=== PATIENT | female | born 1995 | race Caucasian/White ===

== ENCOUNTER 2022-07-23 13:43 | Inpatient (IN) | payer SELFPAY, OTHER ==
[2022-07-23] VITALS (35 sets, daily range): BP systolic 112–150; BP diastolic 63–97; PULSE 67–104; TEMP 36.6–37.4; O2SAT 96–99; BMI 30.1
[2022-07-23] MEDS: Lactated Ringers 1,000 ML 50 ML IV (14:30)
[2022-07-23] MEDS: LACTATED RINGERS 500 ML 999 ML IV (14:33)
--- NOTE | 2022-07-23 14:39 | PCM.HP.OB ---
HPI - General General Date of Admission: 07/23/22 Date of Service: 07/23/22 Chief Complaint: labor HPI Narrative CHRISTIANO PATEL, is a 26 1 para 0 female who presents 07/11/2022 based on the roller coaster designer's clinical judgment. According to her last menstrual period her MARVA would be 07/06/2022 which is consistent with a 25-week ultrasound that gave an estimated MARVA of 07/12/2022. Patient denied any vaginal bleeding. She was having irregular contractions off and on. She arrived to the birthing center last night approximately 7 PM. She had some cervical change. The roller coaster designer with the patient reports that the patient was complete approximately 5 hours ago, she allowed her to labor down for 2 hours then had her push for 2 hours. At that point membranes were intact. After 2 hours without progress patient the roller coaster designer called me and asked to transport the patient here for possible Pitocin augmentation, alternative pain control measures and possible need for operative delivery. I excepted the transport because she reported that the heart tones were stable in the the patient was stable. They arrived to labor and delivery and the patient was very uncomfortable. She had spontaneous rupture membranes right before they left the birthing center. She is had regular care starting at approximately 17-week. Maternal Data Information Final MARVA: 07/06/22 Gestational age: 42 3/7 PFSH PFSH Medical History no medical history Home Medications diphenhydramine HCl 25 mg capsule (Benadryl) 25 mg PO PRN PRN poision anel 07/23/22 [History Last Taken 07/22/22 21:00] [id number] 1 mg tablet 1 tab PO DAILY 07/23/22 [History Last Taken Unknown] Allergy/AdvReac Type Severity Reaction Status Date / Time acetaminophen [From Tylenol] Allergy Hives Verified 07/23/22 14:10 ceftriaxone [From Rocephin] Allergy Hives Verified 07/23/22 14:14 Surgical History no surgical history Social History Smoking Status: Never smoker History Elective abortions Hx Para 0 Spontaneous abortions Hx # Term Pregnancies Ectopic pregnancies Hx # Pregnancies Multiple births # of living children NST FHR Rate Baby A Baseline: normal Variability:: Minimal Accelerations:: None Decelerations:: None NST Reactive:: Non-Reactive Uterine Activity:: regular ctxs ROS Constitutional Constitutional: Denies fatigue, fever(s) or malaise Eyes Eyes: Denies change in vision ENT HEENT: Denies dizziness or headache(s) Cardiovascular Cardiovascular: Denies chest pain, dyspnea or lightheadedness Respiratory/Chest Respiratory/Chest: Denies cough or dyspnea Gastrointestinal Gastrointestinal: Denies change in bowel habits Genitourinary Genitourinary: Denies burning urination or genital lesions Integumentary Integumentary: Denies rash Neurologic Neurologic: Denies confusion, dizziness, headache(s), numbness or weakness Vital Signs Vital Signs Vital Signs: 07/23/22 13:54 07/23/22 13:54 07/23/22 13:54 Temperature 97.9 F Temperature Source Temporal Pulse Ox 98 Weight Weight: 98 kg Body Mass Index (BMI) 30.1 Physical Exam Const alert and no apparent distress General Appearance: cooperative HEENT normocephalic Resp normal respiratory effort Cardio regular rate GI soft to palpation GI Narrative: gravid, nontender, appropriate for gestational age Extremity no calf tenderness General Extremity: edema Skin no wounds Rashes: No rashes noted Psych activity/motor behavior normal Labs Labs Labs: No Data to Display Assessment & Plan (1) 42 weeks gestation of : PLAN: 42+ week gestational age by last menstrual period which was consistent by her 25-week ultrasound. Admit noted with prolonged second stage. I discussed with the patient and her the options of proceeding with a section. I discussed with them that being anterior lip for 5+ hours without an epidural was diagnostic for arrest of descent and CPD. However there is very little caput on the skull and the heart tones are category 1 at this point. Patient is afebrile. I discussed with her that being anterior lip to complete for this long increase the risk of pelvic floor nerve damage. Discussed with him that would be the clinical recommendation. However, she could elect for an epidural and Pitocin augmentation I would be willing to let her push for another hour to see if she made significant progress. Patient would like to proceed with this. Group B strep was not collected because patient had multiple cervical exams. She does not have a fever so and has not had prolonged rupture membranes so does not meet criteria for group B strep prophylaxis based on clinical criteria. panel was drawn. Continuous monitoring and reevaluate after patient is comfortable we will start Pitocin augmentation and resume pushing. (2) Dysfunctional labor: (3) Prolonged second stage:
[2022-07-23 14:51] LABS: Absolute Lymphocyte Count 0.79 X10^3/uL (0.83-4.51); Absolute Neutrophil Count 10.9 X10^3/uL (2.0-7.7); Basophil# 0.02 X10^3/uL; Basophil% 0.2 % (0-1); Eosinophil# 0.01 X10^3/uL; Eosinophils% 0.1 % (0-5); Hematocrit 37.7 % (37-47); Hemoglobin 12.9 g/dL (12.0-15.0); Lymphocyte # 0.79 X10^3/ul (0.83-4.51); Lymphocyte % 6.5 % (19-41); Mean Corp Hgb Conc 34.2 g/dL (32-36); Mean Corpuscular Hgb 31.8 pg (27.0-32.0); Mean Corpuscular Volume 92.9 fL (81-99); Mean Platelet Vol. 11.5 fl (6.2-12.0); Monocyte# 0.54 X10^3/uL; Monocyte% 4.4 % (0-10); NRBC Flagged by Analyzer 0 % (0-5); Neutrophil # 10.85 X10^3/uL (2.7-7.7); Neutrophil % 88.6 % (47-70); Platelet Count 192 K/mm3 (150-450); RBC Distribution Width CV 12.4 % (11.6-14.6); RBC Distribution Width SD 42.7 fl (35.1-43.9); Red Blood Count 4.06 M/mm3 (4.2-5.4); White Blood Count 12.2 K/mm3 (4.4-11.0)
[2022-07-23] MEDS: fentaNYL-bupivacaine (epidural) 100 ML BAG EPIDURAL (15:33)
[2022-07-23] MEDS: Oxytocin 30 units/NS 500 ml 30 UNITS/500 ML IV.SOLN IV (16:20)
[2022-07-23 16:22] LABS: HIV - WCH Non-Reactive (Nonreactive); Hepatitis B Surface Antigen Non-Reactive (Nonreactive); Hepatitis C Antibody Non-Reactive (Nonreactive)
[2022-07-23 16:32] LABS: Mucous, Urine 0 SEEN /hpf (<or=2+); Red Blood Cells-Urine 0 SEEN /hpf (0-5); White Blood Cells 0 SEEN /hpf (0-5)
[2022-07-23 16:36] LABS: Color, Urine Yellow (Yellow); Glucose, Dipstick Normal (Normal); Ketone-Dipstick 50 mg/dl (Negative); Leukocyte Esterase-Dipstick Negative /ul (Negative); Nitrite-Dipstick Negative (Negative); Occult Blood-Urine Negative /ul (Negative); Protein-Dipstick Negative (Negative); Specific Gravity, Urine 1.015 (1.002-1.030); Urine Bilirubin Dipstick Negative (Negative); Urine Clarity Clear (Clear); Urine Urobilinogen Normal (Normal)
[2022-07-23 16:47] LABS: Bacteria 1+ /hpf (None Seen); Squamous Epithelial Cells - UA 0-5 SEEN /hpf (5-10)
[2022-07-23 17:22] LABS: Amphetamine Urine VISTA NEGATIVE (<1000 ng/mL); Barbiturate Urine VISTA NEGATIVE (< 200 ng/mL); Benzodiazepine Urine VISTA NEGATIVE (< 200 ng/mL); Cocaine Urine VISTA NEGATIVE (< 300 ng/mL); Ecstacy Urine VISTA NEGATIVE (< 500 ng/mL); Methadone Urine VISTA NEGATIVE (< 300 ng/mL); PCP Urine VISTA NEGATIVE (< 25 ng/mL); THC Urine VISTA NEGATIVE (< 50 ng/mL); Vista UDS pH Range 6
[2022-07-23] MEDS: Lactated Ringers 1,000 ML 200 ML IV (18:26)
[2022-07-23] MEDS: Oxytocin 30 units/NS 500 ml 30 UNITS/500 ML IV.SOLN 334 UNITS IV (19:35)
--- NOTE | 2022-07-23 20:05 | OP.PCM_ITS ---
Assessment & Plan (1) 42 weeks gestation of : (2) (spontaneous vaginal delivery): (3) Second degree laceration of perineum, delivered, current hospitalization: Maternal Data Information Final MARVA: 07/06/22 Gestational age: 42 3/7 Vaginal Delivery Maternal Presentation Maternal Presentation: Active Labor Operative Information Date of Procedure: 07/23/22 Pre-Operative Diagnosis: labor Post-Operative Diagnosis: same Surgery / Procedure Performed: Spontaneous Vaginal Delivery Type of Anesthesia: Epidural Special Medications: none Drain: Chong to straight drain Estimated Blood Loss: 500 Time of Delivery: 19:31 Findings Description of Procedure: A vigorous male infant was delivered MIRI over a second-degree perineal laceration. The remainder the infant was delivered with maternal pushing and gentle traction only in less than 15 seconds. The Pitocin infusion was initiated for active management of the third stage. The cord was clamped and cut after it stopped pulsing. The was attended to by the waiting nursing staff. The placenta was delivered spontaneously and intact. The cervix and vagina were intact. The second-degree perineal laceration was repaired with 3-0 Vicryl suture in a running standard fashion. The uterus was explored once and cleared of all clot and debris. The Pitocin was increased. Her fundus then firmed up and the bleeding was average. Sponge and needle counts were correct. A vaginal sweep was completed by me. Presentation: MIRI Amniotic Membrane Rupture Type: Spontaneous Amniotic Fluid Description: Clear Placental Delivery Description: Spontaneous Placenta Disposition: [facility] Cord Vessel Description: 3 Vessels Cord Entanglement: None A Gender: Male (Mendel) (1 minute): 8 (5 minute): 9 Delayed Cord Clamping: Yes Post Vaginal Delivery Medications Given After Delivery: IV Pitocin Episiotomy Description: None Laceration: 2nd degree Complication Complications: None Admit VTE Documentation VTE Present on Admission: No VTE Mechan Device Prophylaxis: [facility] [place] VTE Pharm Prophylaxis Ordered: No
[2022-07-23] MEDS: Ibuprofen 600 MG Tablet PO (21:15)
[2022-07-23] MEDS: 0.9% Saline Lock 10 ML Syringe IV (21:57)
[2022-07-24 01:10] VITALS: BP 100/60; PULSE 74; RESP 16; TEMP 36.7; O2SAT 97
[2022-07-24 01:10] LABS: Chlamydia Trachomatis by PCR Negative (Negative); Neisserai gonorrhoeae by PCR Negative (Negative); Probe Check PASS; Sample Adequacy Control PASS; Specimen Processing Control PASS
[2022-07-24] MEDS: Ibuprofen 600 MG Tablet PO ×3 (03:20→21:19)
[2022-07-24] MEDS: Benzocaine/Lanolin/Aloe Vera 1 SPRAY EACH TOPICAL (03:34)
[2022-07-24 03:45] VITALS: BP 106/64; PULSE 80; RESP 18; TEMP 36.6; O2SAT 97
[2022-07-24 07:30] VITALS: BP 107/70; PULSE 81; RESP 16; TEMP 36.8; O2SAT 100
--- NOTE | 2022-07-24 07:40 | NURSING ---
bedside report given to Charlie Mar RN who is assuming care of pt at this time
--- NOTE | 2022-07-24 09:39 | PN.OBGYN_ITS ---
Subjective Subjective Pain well controlled. Average lochia. Objective Data Objective Data Vital Signs: Vital Signs Temp Pulse Resp BP Pulse Ox O2 Del Method 98.2 F 81 16 107/70 100 Room Air 07/24/22 07:30 07/24/22 07:30 07/24/22 07:30 07/24/22 07:30 07/24/22 07:30 07/24/22 07:30 Oxygen Delivery Method Room Air Weight: 98 kg Body Mass Index (BMI) 30.1 Intake & Output: Intake and Output for Last 24 Hours 07/22/22 07/23/22 07/24/22 23:59 23:59 23:59 Intake Total 1860.43 / 1860.43 Output Total 1680 / 1680 Balance 1860.43 / 1860.43 -1680 / -1680 Lab / Micro Data Result Diagrams: 07/23/22 14:40 Labs: Laboratory Results - last 24 hr 07/23/22 14:40: WBC 12.2 H, RBC 4.06 L, Hgb 12.9, Hct 37.7, MCV 92.9, MCH 31.8, MCHC 34.2, RDW Std Deviation 42.7, RDW Coeff of [place] 12.4, Plt Count 192, MPV 11.5, Immature Gran % (Auto) 0.200, Neut % (Auto) 88.6 H, Lymph % (Auto) 6.5 L, [place] % (Auto) 4.4, Eos % (Auto) 0.1, Baso % (Auto) 0.2, Absolute Neuts (auto) 10.9 H, Absolute Lymphs (auto) 0.79 L, Nucleated RBC % 0 07/23/22 14:40: Blood Type A POSITIVE, Antibody Screen NEGATIVE 07/23/22 14:40: Hep Bs Antigen Non-Reactive, Hepatitis C Antibody Non-Reactive, HIV 1&2 Antibody Non-Reactive 07/23/22 16:15: Urine Color Yellow, Urine Clarity Clear, Urine pH 6.0, Ur Specific [place] 1.015, Urine Protein Negative, Urine Glucose (UA) Normal, Urine Ketones 50 H, Urine Occult Blood Negative, Urine Nitrite Negative, Urine Bilirubin Negative, Urine Urobilinogen Normal, Ur Leukocyte Esterase Negative, Urine RBC 0 SEEN, Urine WBC 0 SEEN, Ur Squamous Epith Cells 0-5 SEEN, Urine Bacteria 1+, Urine Mucus 0 SEEN 08/27/22 16:15: Urine Opiates Screen NEGATIVE, Urine Methadone Screen NEGATIVE, Ur Barbiturates Screen NEGATIVE, Ur Phencyclidine Scrn NEGATIVE, Ur Amphetamines Screen NEGATIVE, MDMA (Ecstasy) Screen NEGATIVE, U Benzodiazepines Scrn NEGATIVE, Urine Cocaine Screen NEGATIVE, U Cannabinoids Screen NEGATIVE, Ur Drug Screen Comment 07/23/22 21:20: Chlam trachomat DNA PCR Negative, N.gonorrhoeae DNA (PCR) Negative Micro: Microbiology 07/23/22 14:20 Nasal Secretion SARS-CoV-2 Antigen (Rapid) - Final Physical Exam Const alert and no apparent distress Narrative: Fundus firm, below umbilicus. Assessment & Plan (1) (spontaneous vaginal delivery): PLAN: day 1. Patient is doing well. is in the special care nursery for low blood sugars. She is pumping and hopefully will be able to work on breast-feeding today. Otherwise routine care for the mother.
[2022-07-24 13:20] VITALS: BP 109/68; PULSE 73; RESP 18; TEMP 36.3; O2SAT 100
[2022-07-24 16:33] VITALS: BP 104/63; PULSE 73; RESP 18; TEMP 36.6; O2SAT 98
[2022-07-24 20:34] VITALS: BP 120/84; PULSE 89; RESP 16; TEMP 36.8
[2022-07-25 02:41] VITALS: BP 102/50; PULSE 66; RESP 16; TEMP 36.7
--- NOTE | 2022-07-25 07:21 | PCM.PROGNOTE ---
Subjective Subjective patient seen in [facility] up to chair with , doing well. Patient reports good pain control. lochia mild. does not have urge to urinate but doing timed voids w/o difficulty. breast feeding. Objective Data Objective Data Vital Signs: Vital Signs Temp Pulse Resp BP Pulse Ox O2 Del Method 98.1 F 66 16 102/50 L 98 Room Air 07/25/22 02:41 07/25/22 02:41 07/25/22 02:41 07/25/22 02:41 07/24/22 16:33 07/24/22 16:33 Oxygen Delivery Method Room Air Weight: 98 kg Body Mass Index (BMI) 30.1 Intake & Output: Intake and Output for Last 24 Hours 07/23/22 07/24/22 07/25/22 23:59 23:59 23:59 Intake Total 1860.43 / 1860.43 Output Total 1680 / 1680 Balance 1860.43 / 1860.43 -1680 / -1680 Lab / Micro Data Result Diagrams: 07/23/22 14:40 Micro: Microbiology 07/23/22 14:20 Nasal Secretion SARS-CoV-2 Antigen (Rapid) - Final Physical Exam Narrative abd: soft fundus firm. Const alert and oriented x3 General Appearance: cooperative HEENT normocephalic Neck General: normal visual inspection GI soft to palpation and non-distended GI Narrative: Fundus firm Extremity normal to inspection and no calf tenderness Skin no rashes or lesions noted Neuro oriented x3 and CN's II-XII intact bilaterally Psych mental status grossly normal Assessment & Plan Assessment/Plan (1) Second degree laceration of perineum, delivered, current hospitalization: (2) (spontaneous vaginal delivery): PLAN: Plan PPD# 2 , Doing well [facility]
--- NOTE | 2022-07-25 07:23 | DCINST_ITS ---
Discharge Instructions Procedure Vaginal Delivery Diet Discharge Diet: No restrictions Activity May resume sexual activity in: 6-8 weeks Dressing / Incision Call your doctor if you observe: Fever of 101 or Higher, Inability to urinate, Using more than 1 pad per hour and Uncontrolled pain Follow Up Care Please Follow Up With: Lisa Wooten MD When: 1-2 weeks post and again at 6 weeks post . [phone] Test Results: Test results from this visit will be discussed in further detail at your follow- up appointment, if applicable. Discharge Plan Admission Admit Date/Time: 07/23/22 13:43 Attending Provider: Stephani Boucher Primary Care Provider: Care Physician,Marcia Primary Discharge Orders/Prescriptions Prescriptions: No Action diphenhydramine HCl [Benadryl] 25 mg Capsule 25 mg PO PRN PRN (Reason: poision anel) 1 mg Tablet 1 tab PO DAILY Referrals / Follow Up: Care Physician,No Primary [Primary Care Provider] - Disposition Disposition (needs filled in before D/C Order can be placed): Home, Self Care
[2022-07-25 08:30] VITALS: BP 136/79; PULSE 88; RESP 16; TEMP 36.1
[2022-07-25] MEDS: Ibuprofen 600 MG Tablet PO (09:01)
[2022-07-25 09:50] LABS: Rubella IgG Non-Reactive (Nonreactive); Syphilis Antibodies Non-reactive
--- NOTE | 2022-07-25 13:06 | NURSING ---
1245- This RN IBCLC in room per pt request to assess breast pump settings. Pt. and FOB set up breastpump independently and was getting ready to pump. Tips given on how to assess valve and keeping pump flush against breast to maintain suction. Verbalized understanding. Milk noted in flanges on both breasts bilaterally. No further questions or concerns at this time. Emotional support provided. Joselyn Kim RN IBCLC.
== END 2022-07-25 13:15 | disposition home or self-care (01) | DRG 807 ==
PROVIDERS: Admitting Provider Obstetrics & Gynecology; Visit Provider Obstetrics & Gynecology
DX: O63.1 Prolonged second stage (of labor) (principal); Z37.0 Single live birth; O70.1 Second degree perineal laceration during delivery; Z3A.42 42 weeks gestation of pregnancy
CPT/HCPCS: 59025; 59050; 76815; 80307; 81001; 85025; 86703; 86762; 86780; 86803; 86850; 86900; 86901; 87340; 87426; 87491; 87591; 99218; J7120; A4216; G0378